=== PATIENT | female | born 1995 | race Caucasian/White ===

== ENCOUNTER 2024-07-30 18:39 | Emergency (ER) | payer SELFPAY ==
[~2024-07-30] VITALS: Ht 167.6 cm; Wt 81.6 kg
[2024-07-30 18:41] VITALS: O2SAT 98
[2024-07-30] MEDS ORDERED: IBUP-2029 MT (21:18)
[2024-07-30 21:53] VITALS: BP 123/75; PULSE 76; RESP 18; TEMP 36.8; O2SAT 98
== END 2024-07-30 22:03 | disposition home or self-care (01) ==
LOC: ER 18:39
DX: S83.91XA Sprain of unspecified site of right knee, initial encounter (principal); X58.XXXA Exposure to other specified factors, initial encounter; Y93.89 Activity, other specified; Y92.89 Other specified places as the place of occurrence of the external cause; Y99.8 Other external cause status
CPT/HCPCS: 73560; 99283